=== PATIENT | female | born 1940 | race Caucasian/White ===

== ENCOUNTER → 2017-02-24 | Outpatient (REF) | payer MEDICARE, BC ==
[2017-02-24 10:17] LABS: MEAN CORPUSCULAR VOLUME 91.2 fl (80.0-96.0); WHITE BLOOD COUNT 3.1 K/mm3 (4.0-10.0)
[2017-02-24 11:29] LABS: ALBUMIN/GLOBULIN RATIO 1.11 (1.00-1.93); ALKALINE PHOSPHATASE 82 U/L (45-117); ALT/SGPT 24 U/L (12-78); ANION GAP 9 MEQ/L (8-16); AST/SGOT 16 U/L (15-37); BILIRUBIN,TOTAL 0.4 MG/DL (0.2-1.0); BLOOD UREA NITROGEN 22 MG/DL (7-18); CALCIUM LEVEL 9.3 MG/DL (8.8-10.2); CARBON DIOXIDE LEVEL 31 MEQ/L (21-32); CHLORIDE LEVEL 106 MEQ/L (98-107); CREATININE FOR GFR 0.95 MG/DL (0.55-1.02); FREE T4 1.19 NG/DL (0.76-1.46); GLOMERULAR FILTRATION RATE > 60.0 (>39); GLUCOSE, FASTING 106 MG/DL (83-110); POTASSIUM SERUM 3.9 MEQ/L (3.5-5.1); SODIUM LEVEL 146 MEQ/L (136-145); TOTAL PROTEIN 7.6 GM/DL (6.4-8.2)
== END ==
LOC: M SFHCPLAZ 09:04
PROVIDERS: ATTEND Nurse Practitioner Family
DX: F03.90 Unspecified dementia, unspecified severity, without behavioral disturbance, psychotic disturbance, mood disturbance, and anxiety (principal); E03.9 Hypothyroidism, unspecified

== ENCOUNTER 2017-04-05 16:55 | Inpatient (IN) | payer MEDICARE, BC ==
[~2017-04-05] VITALS: Ht 157.5 cm; Wt 76.7 kg
[2017-04-05] MEDS ORDERED: MULTTAB4 OR (18:37)
[2017-04-05] MEDS ORDERED: ZINC60OI TOP (18:37)
[2017-04-05] MEDS ORDERED: OMEP20CA3 PO (18:37)
[2017-04-05] MEDS ORDERED: ASPI81TA18 PO (18:37)
[2017-04-05] MEDS ORDERED: DONETAB6 PO (18:37)
[2017-04-05] MEDS ORDERED: WAL-100S PO (18:37)
[2017-04-05] MEDS ORDERED: FLUT1SPR2 (18:37)
[2017-04-05] MEDS ORDERED: MEMA1TAB2 PO (18:37)
[2017-04-05] MEDS ORDERED: LEVO88TA3 PO (18:37)
[2017-04-05] MEDS ORDERED: CALC600T6 PO (18:37)
[2017-04-05 19:40] LABS: ANION GAP 5 MEQ/L (8-16); BLOOD UREA NITROGEN 18 MG/DL (7-18); CALCIUM LEVEL 9.1 MG/DL (8.8-10.2); CARBON DIOXIDE LEVEL 30 MEQ/L (21-32); CHLORIDE LEVEL 108 MEQ/L (98-107); CREATININE FOR GFR 0.99 MG/DL (0.55-1.02); GLOMERULAR FILTRATION RATE 57.8 (>39); GLUCOSE, FASTING 106 MG/DL (83-110); POTASSIUM SERUM 4.3 MEQ/L (3.5-5.1); SODIUM LEVEL 143 MEQ/L (136-145)
[2017-04-05 19:44] LABS: MEAN CORPUSCULAR HEMOGLOBIN 30.1 pg (27.0-33.0); MEAN CORPUSCULAR HGB CONC 33.4 g/dl (32.0-36.5); MEAN CORPUSCULAR VOLUME 90.3 fl (80.0-96.0); RED CELL DISTRIBUTION WIDTH 13.4 % (11.5-14.5); WHITE BLOOD COUNT 3.3 K/mm3 (4.0-10.0)
[2017-04-05] MEDS ORDERED: NITROFURANTOIN (MACROBID) 100 MG CAP PO ONE (20:45)
[2017-04-05] MEDS ORDERED: VITMTA PO (21:42)
--- NOTE | 2017-04-05 22:07 | ECGEPIP ---
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
--- NOTE | 2017-04-05 23:41 | HPEPDOC ---
General Date of Admission 04/05/2017 Primary Care Physician: MARCO A BOLANOS NP Attending Physician: CYNTHIA WIGGINS MD Chief Complaint The patient is a 76-year-old female admitted with a reason for visit of Unable To Ambulate. Source: Old records History of Present Illness Ms. Trevizo is a 76-year-old female who was sent to the emergency department because of deteriorating condition, and she is likely not going to be able to continue in assisted living, but will require a higher level of care such as a usp. Her entire history was obtained from medical record it. It appears that at baseline she is demented and essentially nonverbal. Per medical records she apparently had good intake and a good appetite on 03/14/2017 , at that time she was seen by her family practitioner for an upper respiratory illness which appears to have resolved. Apparently she has gotten worse, but nobody is accompanying the room the patient to explain to me the details of what has happened, and it is the middle of the night right now therefore I recommend calling [facility] in the morning to get a better idea of what has been going on. Home Medications Scheduled (Aspirin EC Low Dose) 81 Mg Tab, 81 MG PO DAILY, (Reported) Calcium/Vitamin D (Calcium/Vitamin D 600-400 mg-Unit) 1 Tab Tab, 1 TAB PO BID, ( Reported) TAKES AT 0800 AND 1600 Donepezil Hcl (Donepezil HCl) 10 Mg Tab, 10 MG PO QHS, (Reported) Fluticasone Propionate (Fluticasone Propionate 0.05%) 120 [place]/16 Gm Naspr, 1 SPRAY NA DAILY, (Reported) Levothyroxine Sodium (Synthroid) 88 Mcg Tab, 88 MCG PO DAILY, (Reported) Memantine Hydrochloride (Memantine HCl) 10 Mg Tab, 10 MG PO BID, (Reported) TAKES AT 0800 AND 1600 [address]ivitamins *[facility] STOCKED* (Thera M Plus *[facility] STOCKED*) 1 Tab Tab, 1 TAB PO QPM , (Reported) TAKES AT 1600 Omeprazole (Omeprazole) 20 Mg Cap, 20 MG PO DAILY, (Reported) Zinc Oxide (Zinc Oxide 20% Oint) 1 Dose/60 Gm Oint, 1 DOSE TOP BID, (Reported) APPLY TO BUTTOCKS Scheduled PRN (Wal-Tussin) 100 Mg/5 Ml Syp, 10 ML PO Q4H PRN for COUGH, (Reported) Allergies Coded Allergies: Amoxicillin (Verified Allergy, Unknown, 04/05/17) Clarithromycin (Verified Allergy, Unknown, 04/05/17) Risperidone (Verified Allergy, Unknown, 04/05/17) Past Medical History Medical History Hypertension Dementia Hypercholesterolemia Hypothyroidism Colon cancer stage II status post bowel resection in 2002 Osteoporosis Chronic leukopenia and thrombocytopenia Surgical History Bowel resection of colon cancer in 2002, family declined any additional follow- up since that Family History Both mother and Father in their 60s from an SD. Siblings have hypertension and CVA. Apparently 2 children have hypertension as well Social History * Smoker: non-smoker Alcohol: Denies Drugs: denies Recent Travel/Sick Contacts: Denies: Recent travel Psychosocial History: No pertinent psych hx Review of Symptoms Other systems Unobtainable as the patient is nonverbal Physical Examination General Exam: Positive: No Acute Distress, Negative: Alert, Cooperative Eye Exam: Positive: Conjunctiva & lids normal, EOMI, Negative: Sclera icteric ENT Exam: Positive: Atraumatic, Mucous membr. moist/pink, Pharynx Normal Chest Exam: Positive: Clear to auscultation, Normal air movement, Negative: Rales, Rhonchi, Wheezing Heart Exam: Positive: Rate Normal, Regular Rhythm, Other (distant heart sounds make auscultatory findings difficult), Negative: Normal S1 (S1 does sound somewhat muffled), Murmurs, Rubs Telemetry: Positive: Other Telemetry: (left bundle branch block) Abdomen Exam: Positive: Normal bowel sounds, Soft, Negative: Tenderness, Hepatospenomegaly Extremity Exam: Positive: Normal pulses, Negative: Clubbing, Cyanosis, Edema Skin Exam: Positive: Nl turgor and temperature, Negative: Breakdown, Lesion Psych Exam: Negative: Mental status NL, Oriented x 3 Vital Signs Vital Signs Date Time Temp Pulse Resp B/P (MAP) Pulse Ox O2 Delivery O2 Flow Rate FiO2 04/05/17 20:55 64 18 97 04/05/17 20:54 134/63 (86) 04/05/17 17:27 98.2 Room Air Laboratory Data Labs 24H Laboratory Tests 2 04/05/17 19:06: Anion Gap 5L, Glomerular Filtration Rate 57.8, Blood Urea Nitrogen 18, Creatinine 0.99, Sodium Level 143, Potassium Level 4.3, Chloride Level 108H, Carbon Dioxide Level 30, Calcium Level 9.1, Total Creatine Kinase 56, Creatine Kinase MB 1.3, Creatine Kinase MB Relative Index 2.32, Troponin I < 0.02 04/05/17 19:07: Urine Appearance CLOUDYH, Urine Color YELLOW, Urine pH 7.0, Urine Specific [place] 1.012, Urine Protein NEGATIVE, Urine Glucose (UA) NEGATIVE, Urine Ketones NEGATIVE, Urine Urobilinogen 0.2, Urine Bilirubin NEGATIVE, Urine Leukocyte Esterase 1+H, Urine Blood NEGATIVE, Urine Nitrite NEGATIVE, Urine WBC (Auto) 31H, Urine RBC (Auto) 6H, Urine Hyaline Casts (Auto) 0, Urine Bacteria ( Auto) 1+H, Urine Squamous Epithelial Cells 0, Urine Amorphous Sediment SMALLH, Urine Sperm (Auto) 04/05/17 23:09: CBC/BMP Laboratory Tests 04/05/17 19:06 Red Blood Count 3.89 L, Mean Corpuscular Volume 90.3, Mean Corpuscular Hemoglobin 30.1, Mean Corpuscular Hemoglobin Concent 33.4, Red Cell Distribution Width 13.4, Calcium Level 9.1, Total Creatine Kinase 56 Microbiology Microbiology 04/05/17 Urine Culture, Received Pending Problems (1) UTI (urinary tract infection) Status: Acute (2) Left bundle branch block Status: Acute (3) Hypothyroidism Status: Chronic (4) Dementia Status: Chronic (5) Gait disorder Status: Chronic (6) Leukopenia Status: Chronic (7) Thrombocytopenia Status: Chronic Plan / VTE VTE Prophylaxis Ordered?: Yes (Lovenox) Plan Plan We will admit the patient for deteriorating status, and inability to care for herself in assisted living. There are a few acute issues going on with her at this time, the first being a UTI with worsening mental status for which we will treat her with ciprofloxacin. This will be administered every 24 hours (renally dosed) for 3 days because although her labs are within normal limits, she is quite elderly and thin, therefore I suspect that her GFR is significantly less than calculated. Urine cultures already been sent. Per medical record she does have chronic leukopenia and thrombocytopenia. She also has a new left bundle branch block, the only other EKG in the system is from 03/09/2015 when she had sinus bradycardia. Her cardiac marker panel was negative in the ED, we will order 2 additional cardiac marker panels 8 hours apart. We will check a TSH and free T4 to evaluate the efficacy of her current dose of Synthroid, and adjust as needed. Otherwise, pediatric social worker has been consulted for evaluation and possible placement for both she and her into a usp. Regarding her home medications, it appears that her upper respiratory illness has resolved. Chest x-ray in the ED is still pending, but I will discontinue Flonase at this time. Since the patient is nonverbal at baseline, I will discontinue the Namenda and Aricept as these are of no additional benefit to her anymore. I will also discontinue her omeprazole as PPIs are not recommended in the elderly, and she is only on a small dose from home. GME ATTESTATION GME ATTESTATION My preceptor for this patient encounter was physically present in the building during the encounter and was fully available. As needed, all aspects of the patient interview, examination, medical decision making process, and medical care plan development were reviewed and approved by the preceptor. Preceptor is aware and concurs with the plan as stated in the body of this note and will attest to such by his/her cosignature. ATTENDING NOTE I have both independently examined this patient as well as reviewed the H&P. I have discussed in detail with the resident the findings and plan of treatment as documented in the residents note. I will continue to follow the patient and offer further guidance to the patients care as necessary during this hospital stay. ESMER Hale MD, DO Apr 05, 2017 23:41 CYNTHIA WIGGINS MD Apr 06, 2017 18:35
[2017-04-06 00:02] LABS: FREE T4 1.16 NG/DL (0.76-1.46)
[2017-04-06 00:40] VITALS: BP 130/62
[2017-04-06] MEDS: CIPROFLOXACIN 400 MG in APPROPRIATE DILUENT 1 EA IV SCH ×2 (01:59→23:53)
[2017-04-06 06:00] VITALS: BP 133/61
[2017-04-06] MEDS: LEVOTHYROXINE 88MCG TABLET (0.088 MG) PO SCH (06:36)
[2017-04-06 08:08] LABS: MEAN CORPUSCULAR HEMOGLOBIN 30.3 pg (27.0-33.0); MEAN CORPUSCULAR HGB CONC 34.1 g/dl (32.0-36.5); MEAN CORPUSCULAR VOLUME 89.1 fl (80.0-96.0); RED CELL DISTRIBUTION WIDTH 13.6 % (11.5-14.5); WHITE BLOOD COUNT 2.4 K/mm3 (4.0-10.0)
[2017-04-06 08:33] LABS: ANION GAP 9 MEQ/L (8-16); BLOOD UREA NITROGEN 17 MG/DL (7-18); CARBON DIOXIDE LEVEL 26 MEQ/L (21-32); CHLORIDE LEVEL 106 MEQ/L (98-107); CREATININE FOR GFR 0.85 MG/DL (0.55-1.02); GLOMERULAR FILTRATION RATE > 60.0 (>39); GLUCOSE, FASTING 100 MG/DL (83-110); POTASSIUM SERUM 3.9 MEQ/L (3.5-5.1); SODIUM LEVEL 141 MEQ/L (136-145)
[2017-04-06] MEDS: ENOXAPARIN 40 MG/0.4 ML SYRINGE (J1650) SC SCH (09:05)
[2017-04-06] MEDS: ZINC OXIDE 20% OINTMENT 60GM TUBE TOP SCH ×2 (09:05→20:19)
[2017-04-06] MEDS: ASPIRIN 81 MG ENTERIC TAB PO SCH (09:06)
[2017-04-06] MEDS: CALCIUM/VITAMIN D 500 MG TAB PO SCH ×3 (09:06→20:22)
--- NOTE | 2017-04-06 09:12 | REP ---
Chest x-ray: Single view. History: Altered mental status. Comparison study: March 09, 2015. Findings: The patient is rotated somewhat to the right. The chin and face overlie the right apex. EKG electrodes are seen. The heart is not felt to be enlarged. The aorta is somewhat tortuous. The lungs appear to be clear. Pleural angles are sharp. There is diffuse osteopenia. Impression: No active disease seen. Signed by Storm May MD 04/06/2017 09:34 A
--- NOTE | 2017-04-06 10:03 | IPNPDOC ---
Subjective Date Seen The patient was seen on 04/06/17. Subjective Chief Complaint/HPI The patient is a 76-year-old female admitted with a reason for visit of Left Bundle Branch Block/Uti. Events since last encounter Pt denies pain, nursing without new concerns. ROS difficult to obtain d/t dementia. She is asking for her . General: Reports: ROS Unobtainable Objective Physical Examination General Exam: Positive: No Acute Distress, Negative: Alert, Cooperative Eye Exam: Positive: Conjunctiva & lids normal, EOMI, Negative: Sclera icteric ENT Exam: Positive: Atraumatic, Mucous membr. moist/pink, Pharynx Normal Chest Exam: Positive: Clear to auscultation, Normal air movement, Negative: Rales, Rhonchi, Wheezing Heart Exam: Positive: Rate Normal, Regular Rhythm, Other (distant heart sounds make auscultatory findings difficult), Negative: Normal S1 (muffled), Murmurs, Rubs Abdomen Exam: Positive: Normal bowel sounds, Soft, Negative: Tenderness, Hepatospenomegaly Extremity Exam: Positive: Normal pulses, Negative: Clubbing, Cyanosis, Edema Skin Exam: Positive: Nl turgor and temperature, Negative: Breakdown, Lesion Psych Exam: Negative: Mental status NL, Oriented x 3 Assessment /Plan Problems (1) UTI (urinary tract infection) Status: Acute Problem Text: started on IV Cipro, urine culture pending, await results, likely can change to po in the next day or two. Afebrile, WBC 2.4 (2) Left bundle branch block Status: Acute Problem Text: appears to be new since 03/09 EKG. CIP, Trop I Neg x 3. (3) Hypothyroidism Status: Chronic Problem Specific Plan: Monitor Clinically Problem Text: TSH 1.2, cont current dose of replacement. (4) Dementia Status: Chronic Problem Specific Plan: Monitor Clinically Problem Text: Pt has been a resident at [facility], they are no longer able to provide adequate care given her progressive dementia, PFS will need to assist with d/c planning. (5) Gait disorder Status: Chronic (6) Leukopenia Status: Chronic (7) Thrombocytopenia Status: Chronic Plan/VTE VTE Prophylaxis Ordered?: Yes (Lovenox) Plan Family Medicine Attending Note: Patient seen and examined this morning; I d/w Marj López, RPA-C and I agree with her note above. Will transition to PO antibiotics once urine culture results are available. PFS consulted for discharge planning (KES) VS, I&O, 24H, [place] Vital Signs/I&O Vital Signs Date Time Temp Pulse Resp B/P (MAP) Pulse Ox O2 Delivery O2 Flow Rate FiO2 04/06/17 06:00 97.0 52 18 133/61 (85) 95 Room Air I&O- Last 24 Hours up to 6 AM 04/06/17 06:00 Intake Total 0 ml Output Total 250 ml Balance -250 ml Laboratory Data 24H LABS Laboratory Tests 2 04/05/17 19:06: Anion Gap 5L, Glomerular Filtration Rate 57.8, Blood Urea Nitrogen 18, Creatinine 0.99, Sodium Level 143, Potassium Level 4.3, Chloride Level 108H, Carbon Dioxide Level 30, Calcium Level 9.1, Total Creatine Kinase 56, Creatine Kinase MB 1.3, Creatine Kinase MB Relative Index 2.32, Troponin I < 0.02 04/05/17 19:07: Urine Appearance CLOUDYH, Urine Color YELLOW, Urine pH 7.0, Urine Specific [place] 1.012, Urine Protein NEGATIVE, Urine Glucose (UA) NEGATIVE, Urine Ketones NEGATIVE, Urine Urobilinogen 0.2, Urine Bilirubin NEGATIVE, Urine Leukocyte Esterase 1+H, Urine Blood NEGATIVE, Urine Nitrite NEGATIVE, Urine WBC (Auto) 31H, Urine RBC (Auto) 6H, Urine Hyaline Casts (Auto) 0, Urine Bacteria ( Auto) 1+H, Urine Squamous Epithelial Cells 0, Urine Amorphous Sediment SMALLH, Urine Sperm (Auto) 04/05/17 23:09: Total Creatine Kinase 38, Creatine Kinase MB 1.0, Creatine Kinase MB Relative Index 2.63, Troponin I < 0.02, Thyroid Stimulating Hormone (TSH) 1.270, Free Thyroxine 1.16 04/06/17 07:46: Anion Gap 9, Glomerular Filtration Rate > 60.0, Blood Urea Nitrogen 17, Creatinine 0.85, Sodium Level 141, Potassium Level 3.9, Chloride Level 106, Carbon Dioxide Level 26, Calcium Level 9.0, Total Creatine Kinase 45, Creatine Kinase MB 1.0, Creatine Kinase MB Relative Index 2.22, Troponin I < 0.02 CBC/BMP Laboratory Tests 04/05/17 19:06 Red Blood Count 3.89 L, Mean Corpuscular Volume 90.3, Mean Corpuscular Hemoglobin 30.1, Mean Corpuscular Hemoglobin Concent 33.4, Red Cell Distribution Width 13.4, Calcium Level 9.1, Total Creatine Kinase 56 04/06/17 07:46 Red Blood Count 3.57 L, Mean Corpuscular Volume 89.1, Mean Corpuscular Hemoglobin 30.3, Mean Corpuscular Hemoglobin Concent 34.1, Red Cell Distribution Width 13.6, Calcium Level 9.0, Total Creatine Kinase 45 Microbiology Microbiology 04/06/17 Blood Culture, Received Pending 04/06/17 Blood Culture, Received Pending 04/05/17 Urine Culture, Received Pending MARJ LÓPEZ PA-C Apr 06, 2017 10:03 LUIS LI MD Apr 06, 2017 14:52
[2017-04-06 14:00] VITALS: BP 143/71
[2017-04-06] MEDS: MULTIVITAMINS/MINERALS THERAP 1 TAB PO SCH ×2 (20:17→20:22)
[2017-04-06 22:00] VITALS: BP 134/70
[2017-04-07 06:00] VITALS: BP 130/60
[2017-04-07] MEDS: CIPROFLOXACIN 500 MG TAB PO SCH ×2 (06:00→17:32)
[2017-04-07] MEDS: LEVOTHYROXINE 88MCG TABLET (0.088 MG) PO SCH (06:33)
[2017-04-07 06:51] LABS: MEAN CORPUSCULAR HEMOGLOBIN 30.3 pg (27.0-33.0); MEAN CORPUSCULAR HGB CONC 33.8 g/dl (32.0-36.5); MEAN CORPUSCULAR VOLUME 89.6 fl (80.0-96.0); RED CELL DISTRIBUTION WIDTH 13.5 % (11.5-14.5); WHITE BLOOD COUNT 2.7 K/mm3 (4.0-10.0)
[2017-04-07 07:17] LABS: ANION GAP 6 MEQ/L (8-16); BLOOD UREA NITROGEN 15 MG/DL (7-18); CALCIUM LEVEL 9.4 MG/DL (8.8-10.2); CARBON DIOXIDE LEVEL 29 MEQ/L (21-32); CHLORIDE LEVEL 104 MEQ/L (98-107); CREATININE FOR GFR 0.92 MG/DL (0.55-1.02); GLOMERULAR FILTRATION RATE > 60.0 (>39); GLUCOSE, FASTING 94 MG/DL (83-110); POTASSIUM SERUM 3.9 MEQ/L (3.5-5.1); SODIUM LEVEL 139 MEQ/L (136-145)
[2017-04-07] MEDS: ZINC OXIDE 20% OINTMENT 60GM TUBE TOP SCH ×2 (09:00→20:13)
[2017-04-07] MEDS: ASPIRIN 81 MG ENTERIC TAB PO SCH (09:03)
[2017-04-07] MEDS: CALCIUM/VITAMIN D 500 MG TAB PO SCH ×2 (09:04→20:12)
[2017-04-07] MEDS: ENOXAPARIN 40 MG/0.4 ML SYRINGE (J1650) SC SCH (09:04)
[2017-04-07] MEDS: MULTIVITAMINS/MINERALS THERAP 1 TAB PO SCH (20:12)
[2017-04-08 05:22] LABS: MEAN CORPUSCULAR HEMOGLOBIN 30.2 pg (27.0-33.0); MEAN CORPUSCULAR VOLUME 88.7 fl (80.0-96.0); RED CELL DISTRIBUTION WIDTH 13.5 % (11.5-14.5); WHITE BLOOD COUNT 3.2 K/mm3 (4.0-10.0)
[2017-04-08 05:35] LABS: ANION GAP 8 MEQ/L (8-16); BLOOD UREA NITROGEN 16 MG/DL (7-18); CALCIUM LEVEL 9.5 MG/DL (8.8-10.2); CARBON DIOXIDE LEVEL 29 MEQ/L (21-32); CHLORIDE LEVEL 102 MEQ/L (98-107); CREATININE FOR GFR 0.93 MG/DL (0.55-1.02); GLOMERULAR FILTRATION RATE > 60.0 (>39); GLUCOSE, FASTING 108 MG/DL (83-110); POTASSIUM SERUM 3.8 MEQ/L (3.5-5.1); SODIUM LEVEL 139 MEQ/L (136-145)
[2017-04-08 06:00] VITALS: BP 136/66
[2017-04-08] MEDS: LEVOTHYROXINE 88MCG TABLET (0.088 MG) PO SCH (06:07)
[2017-04-08] MEDS: CIPROFLOXACIN 500 MG TAB PO SCH ×2 (06:07→17:42)
[2017-04-08] MEDS: ASPIRIN 81 MG ENTERIC TAB PO SCH (08:42)
[2017-04-08] MEDS: CALCIUM/VITAMIN D 500 MG TAB PO SCH ×2 (08:42→20:38)
[2017-04-08] MEDS: ENOXAPARIN 40 MG/0.4 ML SYRINGE (J1650) SC SCH (08:42)
[2017-04-08] MEDS: ZINC OXIDE 20% OINTMENT 60GM TUBE TOP SCH ×2 (08:43→20:39)
--- NOTE | 2017-04-08 10:40 | DSES ---
DATE OF ADMISSION: 04/05/2017 DATE OF HALF-WAY FACILITY (SNF) DISCHARGE: 04/07/2017 BRIEF HISTORY AND PHYSICAL: Patient is a 76-year-old patient of Danuta Webber, previously a resident of [facility], brought to the hospital due to inability to ambulate and inability to continue living in assisted living situation. Past medical history is significant for: 1. Hypertension. 2. Dementia. 3. Hypercholesterolemia. 4. Hypothyroidism. 5. Colon cancer, stage II. Status post bowel resection in 2002. 6. Osteoporosis. 7. Chronic leukopenia and thrombocytopenia.. PERTINENT LABORATORIES ON ADMISSION: White count 3.3, hemoglobin 11.7, platelets 94,000. Sodium 143, potassium 4.3, BUN 18, creatinine 0.9, glucose 106. CIP and troponin normal. TSH normal. Urinalysis shows positive leukocytes and 31 WBCs with 1+ bacteria. Chest x-ray unremarkable. HOSPITAL COURSE: 1. The patient was admitted for urinary tract infection (UTI) and placed on IV Cipro. Blood cultures were negative. Urine culture is pending. She will be switched to oral Cipro with followup of the cultures and adjustment of antibiotic as needed. 2. Left bundle branch block. New since EKG from February 2015. CIP and troponin negative. Cardiac status is stable. 3. Dementia with decreased ability to ambulate and inability to return to previous living situation. At this point, she will be made SNF and we will look for more of a snf placement situation that is more appropriate for her. 4. Chronic leukopenia and thrombocytopenia. This is stable. 5. Hypothyroidism. She remains on Synthroid, this is therapeutic. DISPOSITION: She is stable for SNF status today. Medications will be dictated at the time of transfer to the snf. DISCHARGE DIAGNOSES: 1. UTI. 2. Left bundle branch block. 3. Hypothyroidism. 4. Dementia. 5. Leukopenia. 6. Thrombocytopenia. 7. Gait disorder.
[2017-04-08 14:00] VITALS: BP 135/70
[2017-04-08] MEDS: MULTIVITAMINS/MINERALS THERAP 1 TAB PO SCH (20:38)
[2017-04-09] MEDS: CIPROFLOXACIN 500 MG TAB PO SCH ×2 (05:38→17:59)
[2017-04-09] MEDS: LEVOTHYROXINE 88MCG TABLET (0.088 MG) PO SCH (05:38)
[2017-04-09 05:57] LABS: MEAN CORPUSCULAR HEMOGLOBIN 30.1 pg (27.0-33.0); MEAN CORPUSCULAR HGB CONC 33.8 g/dl (32.0-36.5); RED CELL DISTRIBUTION WIDTH 13.6 % (11.5-14.5); WHITE BLOOD COUNT 3.5 K/mm3 (4.0-10.0)
[2017-04-09 06:00] VITALS: BP 118/65
[2017-04-09 06:04] LABS: CALCIUM LEVEL 10.3 MG/DL (8.8-10.2); CREATININE FOR GFR 1.13 MG/DL (0.55-1.02); GLOMERULAR FILTRATION RATE 49.6 (>39)
[2017-04-09] MEDS: CALCIUM/VITAMIN D 500 MG TAB PO SCH ×2 (08:47→21:19)
[2017-04-09] MEDS: ZINC OXIDE 20% OINTMENT 60GM TUBE TOP SCH ×2 (08:47→21:19)
[2017-04-09] MEDS: ASPIRIN 81 MG ENTERIC TAB PO SCH (08:47)
[2017-04-09] MEDS: ENOXAPARIN 40 MG/0.4 ML SYRINGE (J1650) SC SCH (08:47)
[2017-04-09] MEDS: MULTIVITAMINS/MINERALS THERAP 1 TAB PO SCH (21:19)
[2017-04-10] MEDS: CIPROFLOXACIN 500 MG TAB PO SCH ×2 (05:44→17:04)
[2017-04-10] MEDS: LEVOTHYROXINE 88MCG TABLET (0.088 MG) PO SCH (05:44)
[2017-04-10 06:00] VITALS: BP 115/67
[2017-04-10] MEDS: CALCIUM/VITAMIN D 500 MG TAB PO SCH ×2 (09:00→21:15)
[2017-04-10] MEDS: ASPIRIN 81 MG ENTERIC TAB PO SCH (09:00)
[2017-04-10] MEDS: DOCUSATE SODIUM 100 MG CAP PO SCH ×2 (09:00→21:00)
[2017-04-10] MEDS: ASPIRIN 81 MG CHEW TABLET PO SCH (09:00)
[2017-04-10] MEDS: SENOKOT S TAB PO SCH ×2 (09:00→21:00)
[2017-04-10] MEDS: ENOXAPARIN 40 MG/0.4 ML SYRINGE (J1650) SC SCH (10:02)
[2017-04-10] MEDS: ZINC OXIDE 20% OINTMENT 60GM TUBE TOP SCH ×2 (10:03→21:16)
[2017-04-10] MEDS ORDERED: BISACODYL 10 MG SUPP PR PRN (10:30)
[2017-04-10] MEDS ORDERED: MIRALAX *UNIT DOSE* 17GM PACKET PO PRN (10:45)
[2017-04-10] MEDS: MULTIVITAMINS/MINERALS THERAP 1 TAB PO SCH (21:15)
[2017-04-11] MEDS: LEVOTHYROXINE 88MCG TABLET (0.088 MG) PO SCH (05:48)
[2017-04-11] MEDS: CIPROFLOXACIN 500 MG TAB PO SCH ×2 (05:48→17:43)
[2017-04-11 06:00] VITALS: BP 121/67
[2017-04-11 06:17] LABS: CALCIUM LEVEL 10.7 MG/DL (8.8-10.2); CREATININE FOR GFR 1.23 MG/DL (0.55-1.02); POTASSIUM SERUM 3.8 MEQ/L (3.5-5.1)
[2017-04-11] MEDS: DOCUSATE SODIUM 100 MG CAP PO SCH ×2 (09:00→21:00)
[2017-04-11] MEDS: ENOXAPARIN 40 MG/0.4 ML SYRINGE (J1650) SC SCH (09:00)
[2017-04-11] MEDS: SENOKOT S TAB PO SCH ×2 (09:04→21:02)
[2017-04-11] MEDS: ASPIRIN 81 MG CHEW TABLET PO SCH (09:04)
[2017-04-11] MEDS: CALCIUM/VITAMIN D 500 MG TAB PO SCH ×2 (09:04→21:02)
[2017-04-11] MEDS: ZINC OXIDE 20% OINTMENT 60GM TUBE TOP SCH ×2 (09:05→21:00)
[2017-04-11] MEDS: MULTIVITAMINS/MINERALS THERAP 1 TAB PO SCH (21:02)
[2017-04-12] MEDS: LEVOTHYROXINE 88MCG TABLET (0.088 MG) PO SCH (05:56)
[2017-04-12] MEDS: CIPROFLOXACIN 500 MG TAB PO SCH ×2 (05:56→17:51)
[2017-04-12 06:00] VITALS: BP 134/70
[2017-04-12] MEDS: ASPIRIN 81 MG CHEW TABLET PO SCH (08:56)
[2017-04-12] MEDS: SENOKOT S TAB PO SCH ×2 (08:56→20:58)
[2017-04-12] MEDS: CALCIUM/VITAMIN D 500 MG TAB PO SCH ×2 (08:56→20:58)
[2017-04-12] MEDS: ZINC OXIDE 20% OINTMENT 60GM TUBE TOP SCH ×2 (08:57→20:58)
[2017-04-12] MEDS: ENOXAPARIN 40 MG/0.4 ML SYRINGE (J1650) SC SCH (08:57)
[2017-04-12] MEDS: DOCUSATE SODIUM 100 MG CAP PO SCH ×2 (09:00→20:58)
[2017-04-12] MEDS: MULTIVITAMINS/MINERALS THERAP 1 TAB PO SCH (20:58)
[2017-04-13] MEDS: CIPROFLOXACIN 500 MG TAB PO SCH (05:09)
[2017-04-13] MEDS: LEVOTHYROXINE 88MCG TABLET (0.088 MG) PO SCH (05:09)
[2017-04-13 06:00] VITALS: BP 149/79
--- NOTE | 2017-04-13 08:46 | IPNPDOC ---
Subjective Date Seen The patient was seen on 04/13/17. Subjective Chief Complaint/HPI The patient is a 76-year-old female admitted with a reason for visit of Left Bundle Branch Block/Uti. Events since last encounter Spoke with daughter, states mental states and intermittent interest in oral intake is typical for patient. Declines TF as stated in MOLST forms. + voids and BM noted in I/O General: Reports: ROS Unobtainable Constitutional: Denies: Chills, Fever, Night Sweats Objective Physical Examination General Exam: Positive: No Acute Distress, Other (non verbal, responds to phsyical stimuli), Negative: Alert, Cooperative Eye Exam: Positive: Conjunctiva & lids normal, EOMI, Negative: Sclera icteric ENT Exam: Positive: Atraumatic, Mucous membr. moist/pink, Pharynx Normal Chest Exam: Positive: Clear to auscultation, Normal air movement, Negative: Rales, Rhonchi, Wheezing Heart Exam: Positive: Rate Normal, Regular Rhythm, Other (distant heart sounds make auscultatory findings difficult), Negative: Normal S1 (S1 does sound somewhat muffled), Murmurs, Rubs Abdomen Exam: Positive: Normal bowel sounds, Soft, Negative: Tenderness, Hepatospenomegaly Extremity Exam: Positive: Normal pulses, Negative: Clubbing, Cyanosis, Edema Skin Exam: Positive: Nl turgor and temperature, Negative: Breakdown, Lesion Psych Exam: Negative: Mental status NL, Oriented x 3 Assessment /Plan Problems (1) UTI (urinary tract infection) Status: Acute Problem Text: Cipro 500 mg po bid x 6 days. DC Cipro. (2) Left bundle branch block Status: Acute Problem Specific Plan: Monitor Clinically (3) Hypothyroidism Status: Chronic (4) Dementia Status: Chronic Problem Text: Instructions in MOLST> reviewed with daughter. Notify for any acute changes. Work phone # in emergency: [phone] (5) Gait disorder Status: Chronic (6) Leukopenia Status: Chronic (7) Thrombocytopenia Status: Chronic Plan/VTE VTE Prophylaxis Ordered?: Yes (Lovenox) VS, I&O, 24H, Fishbone Vital Signs/I&O Vital Signs Date Time Temp Pulse Resp B/P (MAP) Pulse Ox O2 Delivery O2 Flow Rate FiO2 04/13/17 06:00 97.7 83 17 149/79 (102) 92 Room Air I&O- Last 24 Hours up to 6 AM 04/13/17 06:00 Intake Total 540 ml Output Total 0 ml Balance 540 ml Laboratory Data Microbiology Microbiology 04/06/17 Blood Culture - Final, Complete NO GROWTH AFTER 5 DAYS 04/06/17 Blood Culture - Final, Complete NO GROWTH AFTER 5 DAYS 04/05/17 Urine Culture - Final, Complete Aerococcus Urinae Kasie Simmons [facility] Apr 13, 2017 08:46
[2017-04-13] MEDS: DOCUSATE SODIUM 100 MG CAP PO SCH ×2 (09:00→21:00)
[2017-04-13] MEDS: CALCIUM/VITAMIN D 500 MG TAB PO SCH ×2 (09:42→21:00)
[2017-04-13] MEDS: ASPIRIN 81 MG CHEW TABLET PO SCH (09:42)
[2017-04-13] MEDS: ENOXAPARIN 40 MG/0.4 ML SYRINGE (J1650) SC SCH (09:43)
[2017-04-13] MEDS: SENOKOT S TAB PO SCH ×2 (09:43→21:00)
[2017-04-13] MEDS: ZINC OXIDE 20% OINTMENT 60GM TUBE TOP SCH ×2 (09:44→21:32)
[2017-04-13] MEDS: MULTIVITAMINS/MINERALS THERAP 1 TAB PO SCH (21:00)
[2017-04-14 06:00] VITALS: BP 135/77
[2017-04-14] MEDS: LEVOTHYROXINE 88MCG TABLET (0.088 MG) PO SCH (06:04)
[2017-04-14] MEDS: CALCIUM/VITAMIN D 500 MG TAB PO SCH ×2 (09:00→20:08)
[2017-04-14] MEDS: DOCUSATE SODIUM 100 MG CAP PO SCH ×2 (09:00→20:08)
[2017-04-14] MEDS: SENOKOT S TAB PO SCH ×2 (09:00→20:08)
[2017-04-14] MEDS: ASPIRIN 81 MG CHEW TABLET PO SCH (09:00)
[2017-04-14] MEDS: ENOXAPARIN 40 MG/0.4 ML SYRINGE (J1650) SC SCH (09:44)
[2017-04-14] MEDS: ZINC OXIDE 20% OINTMENT 60GM TUBE TOP SCH ×2 (09:47→20:08)
[2017-04-14] MEDS: MULTIVITAMINS/MINERALS THERAP 1 TAB PO SCH (20:08)
[2017-04-15] MEDS: LEVOTHYROXINE 88MCG TABLET (0.088 MG) PO SCH (06:00)
[2017-04-15 06:24] VITALS: BP 131/75
[2017-04-15] MEDS: ASPIRIN 81 MG CHEW TABLET PO SCH (09:00)
[2017-04-15] MEDS: DOCUSATE SODIUM 100 MG CAP PO SCH ×2 (09:00→20:22)
[2017-04-15] MEDS: CALCIUM/VITAMIN D 500 MG TAB PO SCH ×2 (09:00→20:23)
[2017-04-15] MEDS: SENOKOT S TAB PO SCH ×2 (09:00→20:23)
[2017-04-15] MEDS: ENOXAPARIN 40 MG/0.4 ML SYRINGE (J1650) SC SCH (09:04)
[2017-04-15] MEDS: ZINC OXIDE 20% OINTMENT 60GM TUBE TOP SCH ×2 (09:07→20:23)
[2017-04-15] MEDS: MULTIVITAMINS/MINERALS THERAP 1 TAB PO SCH (20:23)
[2017-04-16 05:53] VITALS: BP 128/68
[2017-04-16] MEDS: LEVOTHYROXINE 88MCG TABLET (0.088 MG) PO SCH (05:59)
[2017-04-16] MEDS: SENOKOT S TAB PO SCH ×2 (08:50→19:59)
[2017-04-16] MEDS: DOCUSATE SODIUM 100 MG CAP PO SCH ×2 (08:50→19:58)
[2017-04-16] MEDS: ASPIRIN 81 MG CHEW TABLET PO SCH (08:50)
[2017-04-16] MEDS: CALCIUM/VITAMIN D 500 MG TAB PO SCH ×2 (08:50→19:58)
[2017-04-16] MEDS: ZINC OXIDE 20% OINTMENT 60GM TUBE TOP SCH ×2 (08:52→19:59)
[2017-04-16] MEDS: ENOXAPARIN 40 MG/0.4 ML SYRINGE (J1650) SC SCH (08:52)
[2017-04-16] MEDS ORDERED: ACETAMINOPHEN 650 MG SUPP PR PRN (18:30)
[2017-04-16] MEDS: MULTIVITAMINS/MINERALS THERAP 1 TAB PO SCH (19:59)
[2017-04-17] MEDS: LEVOTHYROXINE 88MCG TABLET (0.088 MG) PO SCH (05:34)
[2017-04-17 06:20] VITALS: BP 93/58
[2017-04-17] MEDS: SENOKOT S TAB PO SCH ×3 (09:00→20:20)
[2017-04-17] MEDS: CALCIUM/VITAMIN D 500 MG TAB PO SCH ×3 (09:00→20:20)
[2017-04-17] MEDS: DOCUSATE SODIUM 100 MG CAP PO SCH ×3 (09:00→20:19)
[2017-04-17] MEDS: ASPIRIN 81 MG CHEW TABLET PO SCH ×2 (09:00→10:38)
[2017-04-17] MEDS: ENOXAPARIN 40 MG/0.4 ML SYRINGE (J1650) SC SCH ×2 (09:00→10:38)
[2017-04-17] MEDS: ZINC OXIDE 20% OINTMENT 60GM TUBE TOP SCH ×2 (10:39→22:02)
[2017-04-17] MEDS: MULTIVITAMINS/MINERALS THERAP 1 TAB PO SCH (20:20)
[2017-04-18 06:00] VITALS: BP 125/63
[2017-04-18] MEDS: LEVOTHYROXINE 88MCG TABLET (0.088 MG) PO SCH (06:00)
[2017-04-18] MEDS: SENOKOT S TAB PO SCH ×2 (09:00→20:26)
[2017-04-18] MEDS: CALCIUM/VITAMIN D 500 MG TAB PO SCH ×2 (09:00→20:26)
[2017-04-18] MEDS: DOCUSATE SODIUM 100 MG CAP PO SCH ×2 (09:00→20:26)
[2017-04-18] MEDS: ASPIRIN 81 MG CHEW TABLET PO SCH (09:00)
[2017-04-18] MEDS: ENOXAPARIN 40 MG/0.4 ML SYRINGE (J1650) SC SCH (11:22)
[2017-04-18] MEDS: ZINC OXIDE 20% OINTMENT 60GM TUBE TOP SCH ×2 (11:23→20:19)
[2017-04-18] MEDS: MULTIVITAMINS/MINERALS THERAP 1 TAB PO SCH (20:26)
[2017-04-19 06:00] VITALS: BP 114/68
[2017-04-19] MEDS: LEVOTHYROXINE 88MCG TABLET (0.088 MG) PO SCH (06:00)
[2017-04-19] MEDS: CALCIUM/VITAMIN D 500 MG TAB PO SCH ×2 (09:00→20:30)
[2017-04-19] MEDS: SENOKOT S TAB PO SCH ×2 (09:00→20:30)
[2017-04-19] MEDS: DOCUSATE SODIUM 100 MG CAP PO SCH ×2 (09:00→20:30)
[2017-04-19] MEDS: ASPIRIN 81 MG CHEW TABLET PO SCH (09:00)
[2017-04-19] MEDS: ENOXAPARIN 40 MG/0.4 ML SYRINGE (J1650) SC SCH (10:11)
[2017-04-19] MEDS: ZINC OXIDE 20% OINTMENT 60GM TUBE TOP SCH ×2 (10:13→21:13)
--- NOTE | 2017-04-19 12:08 | IPNPDOC ---
Subjective Date Seen The patient was seen on 04/19/17. Subjective Chief Complaint/HPI The patient is a 76-year-old female admitted with a reason for visit of Left Bundle Branch Block/Uti. Events since last encounter Per nursing, patient has become less responsive. Not taking much po at all and not taking meds. Objective Physical Examination General Exam: Positive: No Acute Distress, Other (unresponsive breathing comfortably) Chest Exam: Positive: Clear to auscultation, Normal air movement, Negative: Rales, Rhonchi, Wheezing Heart Exam: Positive: Rate Normal, Regular Rhythm, Negative: Murmurs, Rubs Abdomen Exam: Positive: Normal bowel sounds, Soft, Negative: Tenderness Skin Exam: Negative: Breakdown Assessment /Plan Problems (1) Dementia Status: Chronic Problem Text: 04/19 - I spoke with HCP today and updated her on Brooke's status. She again confirmed wishes for DNR/DNI, no feeding tubes and no IVF. I assured her that currently the patient appears comfortable, but if there is any sign of discomfort in her breathing or she appears to be in pain, we will give her something such as Roxanol to keep her comfortable. Nursing staff aware and will contact us if needed for orders. Instructions in MOLST> reviewed with daughter. Notify for any acute changes. Work phone # in emergency: [phone] (2) UTI (urinary tract infection) Status: Acute Problem Text: Cipro 500 mg po bid x 6 days. DC Cipro. (3) Left bundle branch block Status: Acute Problem Specific Plan: Monitor Clinically (4) Hypothyroidism Status: Chronic (5) Gait disorder Status: Chronic (6) Leukopenia Status: Chronic (7) Thrombocytopenia Status: Chronic Plan/VTE VTE Prophylaxis Ordered?: Yes (Lovenox) VS, I&O, 24H, Fishbone Vital Signs/I&O Vital Signs Date Time Temp Pulse Resp B/P (MAP) Pulse Ox O2 Delivery O2 Flow Rate FiO2 04/19/17 06:00 97.2 85 17 114/68 (83) 91 Room Air I&O- Last 24 Hours up to 6 AM 04/19/17 06:00 Intake Total 0 ml Output Total 0 ml Balance 0 ml Attending Note Attending Note patient's daughter comfortable with providing comfort measures as mode of treatment. Roxanol ordered LATOYA BLANC PA-C Apr 19, 2017 12:08 Geoffrey Dee MD Apr 20, 2017 13:03
[2017-04-19] MEDS: MULTIVITAMINS/MINERALS THERAP 1 TAB PO SCH (20:30)
[2017-04-20] MEDS: LEVOTHYROXINE 88MCG TABLET (0.088 MG) PO SCH (05:00)
[2017-04-20 06:00] VITALS: BP 106/62
[2017-04-20] MEDS: ENOXAPARIN 40 MG/0.4 ML SYRINGE (J1650) SC SCH (09:21)
[2017-04-20] MEDS: SENOKOT S TAB PO SCH ×2 (09:21→20:05)
[2017-04-20] MEDS: CALCIUM/VITAMIN D 500 MG TAB PO SCH ×2 (09:21→20:05)
[2017-04-20] MEDS: ASPIRIN 81 MG CHEW TABLET PO SCH (09:21)
[2017-04-20] MEDS: ZINC OXIDE 20% OINTMENT 60GM TUBE TOP SCH ×2 (09:21→21:07)
[2017-04-20] MEDS: DOCUSATE SODIUM 100 MG CAP PO SCH ×2 (09:21→20:05)
[2017-04-20] MEDS: MORPHINE 10MG/0.5ML ORAL CONCENTRATE SOLUTION U/D SL PRN ×3 (13:09→21:54)
[2017-04-20] MEDS: MULTIVITAMINS/MINERALS THERAP 1 TAB PO SCH (20:06)
[2017-04-21] MEDS: LEVOTHYROXINE 88MCG TABLET (0.088 MG) PO SCH (05:31)
[2017-04-21 06:00] VITALS: BP 89/60
[2017-04-21] MEDS: CALCIUM/VITAMIN D 500 MG TAB PO SCH (09:00)
[2017-04-21] MEDS: ASPIRIN 81 MG CHEW TABLET PO SCH (09:00)
[2017-04-21] MEDS: DOCUSATE SODIUM 100 MG CAP PO SCH (09:00)
[2017-04-21] MEDS ORDERED: SCOPOLAMINE 1.5 MG TRANSDERMAL TD PRN (10:15)
[2017-04-21] MEDS ORDERED: ACETAMINOPHEN 650 MG SUPP PR PRN (10:15)
[2017-04-21] MEDS ORDERED: BISACODYL 10 MG SUPP PR PRN (10:15)
[2017-04-21] MEDS ORDERED: LORazepam 1 MG TAB PO PRN (10:15)
[2017-04-22] MEDS: MORPHINE 10MG/0.5ML ORAL CONCENTRATE SOLUTION U/D SL PRN ×2 (01:28→11:14)
[2017-04-22 01:58] VITALS: BP 89/60
--- NOTE | 2017-05-10 00:30 | DS.PDOC ---
Discharge Summary General Date of Admission Apr 05, 2017 at 23:58 Date of Discharge 04/22/2017 Attending Physician: BROOKE GRIMM DO Discharge Summary PROCEDURES PERFORMED DURING STAY: [None]. ADMITTING DIAGNOSES: 1. dementia 2. UTI 3. left bundle branch block 4. gait disorder 5. leukopenia 6. thrombocytopenia DISCHARGE DIAGNOSES: 1. dementia 2. UTI 3. left bundle branch block 4. gait disorder 5. pancytopenia 6. likely acute renal failure 7. anorexia and severe protein calorie manlnutrition COMPLICATIONS/CHIEF COMPLAINT: Left Bundle Branch Block/Uti. HISTORY OF PRESENT ILLNESS: Ms. Trevizo is a 76-year-old female who was sent to the emergency department because of deteriorating condition, and she is likely not going to be able to continue in assisted living, but will require a higher level of care such as a care home. Her entire history was obtained from medical record it. It appears that at baseline she is demented and essentially nonverbal. Per medical records she apparently had good intake and a good appetite on 03/14/2017, at that time she was seen by her family practitioner for an upper respiratory illness which appears to have resolved. History was limited at time of admission. HOSPITAL COURSE: Patient's UTI was treated. As she was not safe for discharge back to [facility], she was made Usp Facility status and was awaiting a bed at a care home. However, patient declined in the interim -- poorly rousable and not takign PO -- and was made RADIOLOGY RESIDENT. She likely had acute renal failure during this time frame, with no documented urine output in the couple days prior to , but no labs were drawn as she was RADIOLOGY RESIDENT. She on 04/22. DISCHARGE MEDICATIONS: Please see below. ALLERGIES: Please see below. PHYSICAL EXAMINATION ON DISCHARGE: Discharge Medications Scheduled (Aspirin EC Low Dose) 81 Mg Tab, 81 MG PO DAILY, (Reported) Calcium/Vitamin D (Calcium/Vitamin D 600-400 mg-Unit) 1 Tab Tab, 1 TAB PO BID, ( Reported) TAKES AT 0800 AND 1600 Donepezil Hcl (Donepezil HCl) 10 Mg Tab, 10 MG PO QHS, (Reported) Fluticasone Propionate (Fluticasone Propionate 0.05%) 120 [place]/16 Gm Naspr, 1 SPRAY NA DAILY, (Reported) Levothyroxine Sodium (Synthroid) 88 Mcg Tab, 88 MCG PO DAILY, (Reported) Memantine Hydrochloride (Memantine HCl) 10 Mg Tab, 10 MG PO BID, (Reported) TAKES AT 0800 AND 1600 Multivitamins *[facility] STOCKED* (Thera M Plus *[facility] STOCKED*) 1 Tab Tab, 1 TAB PO QPM , (Reported) TAKES AT 1600 Omeprazole (Omeprazole) 20 Mg Cap, 20 MG PO DAILY, (Reported) Zinc Oxide (Zinc Oxide 20% Oint) 1 Dose/60 Gm Oint, 1 DOSE TOP BID, (Reported) APPLY TO BUTTOCKS Scheduled PRN (Wal-Tussin) 100 Mg/5 Ml Syp, 10 ML PO Q4H PRN for COUGH, (Reported) Allergies Coded Allergies: Amoxicillin (Verified Allergy, Unknown, 04/05/17) Clarithromycin (Verified Allergy, Unknown, 04/05/17) Risperidone (Verified Allergy, Unknown, 04/05/17) BROOKE GRIMM DO May 10, 2017 00:30
== END 2017-04-22 11:35 | disposition expired | DRG 884 ==
LOC: M ED 16:55 → M ED INP 23:58 → M MS5PR 04-06 00:30 → M MSPAV 04-06 21:03
PROVIDERS: ADMIT Hospitalist; ATTEND Family Medicine
DX: F03.90 Unspecified dementia, unspecified severity, without behavioral disturbance, psychotic disturbance, mood disturbance, and anxiety (principal); E43 Unspecified severe protein-calorie malnutrition; N39.0 Urinary tract infection, site not specified; D61.818 Other pancytopenia; I10 Essential (primary) hypertension; E78.00 Pure hypercholesterolemia, unspecified; E03.9 Hypothyroidism, unspecified; M81.0 Age-related osteoporosis without current pathological fracture; D69.6 Thrombocytopenia, unspecified; D72.819 Decreased white blood cell count, unspecified; I44.7 Left bundle-branch block, unspecified; Z51.5 Encounter for palliative care; Z66 Do not resuscitate; R26.9 Unspecified abnormalities of gait and mobility; Z88.0 Allergy status to penicillin; Z85.038 Personal history of other malignant neoplasm of large intestine; Z90.49 Acquired absence of other specified parts of digestive tract; Z88.8 Allergy status to other drugs, medicaments and biological substances; Z88.1 Allergy status to other antibiotic agents; Z79.82 Long term (current) use of aspirin; Z79.899 Other long term (current) drug therapy